=== PATIENT | female | born 1975 | race Caucasian/White ===

== ENCOUNTER 2017-04-20 13:29 | Emergency (ER) | payer BC ==
[~2017-04-20] VITALS: Ht 160 cm; Wt 99.8 kg
[~2017-04-20 13:29] MED LIST: FLEXERIL10 MG PO; LORTAB 5/500 TA1 TA1 PO; ORUDIS75 M1 PO
[2017-04-20 14:29] LABS: BASOPHIL# 0.1 X10e3 (0-0.3); BASOPHIL% 0.8 % (0-2.5); EOSINOPHIL# 0.4 X10e3 (0-0.7); EOSINOPHIL% 2.7 % (0.0-7.0); HEMATOCRIT 50.7 % (35.0-45.0); HEMOGLOBIN 17.6 gm/dL (12.0-16.0); LYMPHOCYTE% 17.6 % (17.0-45.0); MEAN CELL VOLUME 84.1 FL (83-96); MEAN CORPUSCULAR HEMOGLOBIN 29.1 PG (28-34); MEAN CORPUSCULAR HGB CONC 34.7 g/dL (30-36); MEAN PLATELET VOLUME 7.8 FL (6.5-11.5); MONOCYTE% 5.7 % (3.0-12.0); NEUTROPHIL# 12.3 X10e3 (1.5-7.1); NEUTROPHIL% 73.2 % (40-75); PLATELET COUNT 301 X10e3 (140-420); RED BLOOD COUNT 6.04 X10e (3.90-5.30); RED CELL DISTRIBUTION WIDTH 14.1 % (11.0-15.5); WHITE BLOOD COUNT 16.8 X10e3 (4.0-10.5)
[2017-04-20 14:30] LABS: DIFF IND YES
[2017-04-20 14:32] LABS: PARTIAL THROMBOPLASTIN TIME 26.9 SECONDS (23.5-31.3); PROTHROMBIN TIME (PATIENT) 10.7 SECONDS (10.0-11.7)
[2017-04-20 14:43] LABS: ALBUMIN SERUM 4.7 g/dL (3.5-5.0); BUN/CREATININE RATIO 17.5; CALCIUM SERUM 9.1 mg/dL (8.4-10.2); CREATININE SERUM 0.8 mg/dL (0.6-1.4); GLOM FILT RATE Estimated 90.4 mL/min (>60); POTASSIUM 3.8 mmol/L (3.5-5.1); PROTEIN TOTAL SERUM 8.3 g/dL (6.0-8.3)
[2017-04-20 14:59] LABS: ANISOCYTOSIS SL; PLATELET ESTIMATE NORMAL (NORMAL)
[2017-04-29] MEDS ORDERED: INVOKANA300 MG PO (15:47)
[2017-04-29] MEDS ORDERED: ZOLOFT50 MG PO (15:47)
[2017-04-29] MEDS ORDERED: LEVOXYL125 MCG PO (15:47)
[2017-04-29] MEDS ORDERED: ALLER-EASE180 MG PO (15:48)
== END 2017-04-20 15:25 | disposition home or self-care (01) ==
LOC: CED 13:29
PROVIDERS: Emergency Medicine
DX: K92.2 Gastrointestinal hemorrhage, unspecified (principal); G89.29 Other chronic pain; F17.200 Nicotine dependence, unspecified, uncomplicated
CPT/HCPCS: 80053; 85025; 85610; 85730; 99283

== ENCOUNTER → 2017-05-02 | Day surgery (SDC) | payer BC ==
[~2017-05-02] MED LIST changes: +ALLER-EASE180 MG PO; +INVOKANA300 MG PO; +LEVOXYL125 MCG PO; +ZOLOFT50 MG PO
--- NOTE | ~2017-05-02 | OR ---
Unit #: [id number] #: [id number] Patient: JOSE CUETO [id number] [address] [address] [id number] O MR#: [id number] NAME: JOSE CUETO ROOM: Date of Procedure: 05/02/2017 Admission Date: 05/02/2017 Surgeon: Hansel Shah M.D. : 1975 Attending Physician: Hansel Shah M.D. Primary Care Physician: Alicia Washington M.D. OPERATIVE REPORT PREOPERATIVE DIAGNOSIS Rectal bleeding. POSTOPERATIVE DIAGNOSIS Rectal bleeding. PROCEDURES PERFORMED 1. Esophagogastroduodenoscopy. 2. Biopsy of antrum for Helicobacter pylori testing. 3. Colonoscopy to cecum. 4. Multiple biopsies of scattered nodular areas 45 to 35 cm. ANESTHESIA Monitored anesthesia care. FINDINGS The patient was found to have mild gastritis and a lax GE junction on upper endoscopy. On colonoscopy, the patient was found to have an occasional shallow sigmoid diverticulum, but from 45 to 35 cm, there were few small areas of nodularity. Multiple biopsies were obtained. Mild internal hemorrhoids were also found. SPECIMENS Sent to pathology. COMPLICATIONS None apparent. CONDITION The patient tolerated the procedure well. INDICATIONS FOR PROCEDURE The patient is a 41-year-old female, who presents at this time with intermittent rectal bleeding. She also states there was slimy quality to her stools. This is now resolved. She presents at this time for evaluation by upper and lower endoscopy. DESCRIPTION OF PROCEDURE After obtaining informed consent, the patient was brought to the endoscopy suite and after adequate monitored anesthesia care, had the endoscope placed through the mouth into the upper esophagus under direct vision. It was advanced to the second portion of the duodenum without difficulty with Unit #: [id number] #: [id number] Patient: JOSE CUETO the lumen always in view. The duodenum was within normal limits as was the duodenal bulb. The pylorus opened normally. There was some mild distal gastritis present and a biopsy was obtained for Helicobacter pylori testing. On retroflexion back to the GE junction, there was a lax GE junction, but no other abnormalities were found in the proximal third, middle third, or incisura. On pulling back above the GE junction, there was no stenosis, stricture, or neoplasm seen. There was no distal esophagitis. The remaining portion of the esophagus was within normal limits. Laryngeal structures were grossly normal as viewed from above. At this point in time, the colonoscope was placed through the anus and advanced to the level of cecum without difficulty with lumen always in view. The cecum was normal as was the ileocecal valve. The ascending colon was normal as was the hepatic flexure, transverse colon, splenic flexure, and proximal descending colon. From 45 to 35 cm, there were 2 or 3 small areas that had some slight nodularity present. Multiple biopsies were obtained. The sigmoid colon had a few rare shallow diverticulum present. Other than this, there was no other abnormalities in the sigmoid colon, rectosigmoid, or rectum. On retroflexion in the rectum to the anorectal junction, the patient was found to have some mild internal hemorrhoids. The scope was removed without difficulty. The patient tolerated the procedure well and went from the endoscopy suite to the recovery area in stable condition. RECOMMENDATIONS Gastroesophageal reflux sheet given. Diverticular sheet given. High-fiber diet, lots of liquids, tucks or wipes p.r.n. Call Saturday for pathology. Dictated by... Zenaida Qureshi/brittanie TD: 05/02/2017 17:08 JOB #: [id number] [facility] OPERATIVE REPORT Page 1 of 1 X Hansel Shah MD X PROCEDURE OPERATIVE NOTE
== END | disposition home or self-care (01) ==
LOC: COPS 09:23
DX: K62.89 Other specified diseases of anus and rectum (principal); K63.0 Abscess of intestine; K29.70 Gastritis, unspecified, without bleeding; K57.30 Diverticulosis of large intestine without perforation or abscess without bleeding; K64.8 Other hemorrhoids; E11.9 Type 2 diabetes mellitus without complications; F32.9 Major depressive disorder, single episode, unspecified; E78.00 Pure hypercholesterolemia, unspecified; I10 Essential (primary) hypertension; F41.9 Anxiety disorder, unspecified; J30.9 Allergic rhinitis, unspecified; E89.0 Postprocedural hypothyroidism; F17.210 Nicotine dependence, cigarettes, uncomplicated; E66.9 Obesity, unspecified; Z68.41 Body mass index [BMI] 40.0-44.9, adult; Z85.850 Personal history of malignant neoplasm of thyroid; Z90.49 Acquired absence of other specified parts of digestive tract; Z98.890 Other specified postprocedural states; Z90.710 Acquired absence of both cervix and uterus; Z98.51 Tubal ligation status; Z79.899 Other long term (current) drug therapy
CPT/HCPCS: 82947; 87077; 88305